=== PATIENT | male | born 1985 | race Caucasian/White ===

== ENCOUNTER 2019-09-03 03:37 | Emergency (ER) | payer SELFPAY ==
[~2019-09-03] VITALS: Ht 180.3 cm; Wt 91.9 kg
[2019-09-03 03:40] VITALS: BP 143/98
--- NOTE | 2019-09-03 03:42 | PHYS DOC ---
Past History Past Medical History: Other Smoking: Cigarettes Alcohol Use: Occasionally Drug Use: Amphetamine, Heroin Adult General Chief Complaint Chief Complaint: " .. I was moving a couch.. and I think I got a spider bite....:'" [facility] HPI Patient is a 34 year old MALE who presents with above hx and complaints cellulitis and spider bite to Rt side of neck. Pt. has a 1 cm abscess and surround cellulitis of 6 x 4 cm or erythema. Center area appears to be an injection site. Confronted pt. about drug use. Admitted he injected the site with Heroin.. approximately 10 days ago and area became infected. Patient admits to approximately $50 a day heroin use. Patient has use meth occasionally and does drink occasionally. Patient states his HIV 6 months ago was negative. No other history immunosuppression. Patient has findings of other old injection sites on his arms. No history of prior MRSA. No recent travel. No specific ill contacts. Patient thinks last tetanus was approximately 7 years ago. Review of Systems Review of Systems Constitutional: Denies fever or chills [] Eyes: Denies change in visual acuity, redness, or eye pain [] HENT: Denies nasal congestion or sore throat [] Respiratory: Denies cough or shortness of breath [] Cardiovascular: No additional information not addressed in HPI [] GI: Denies abdominal pain, nausea, vomiting, bloody stools or diarrhea [] : Denies dysuria or hematuria [] Musculoskeletal: Denies back pain or joint pain [] Integument: Complaints of cellulitis and spider bite Neurologic: Denies headache, focal weakness or sensory changes [] Endocrine: Denies polyuria or polydipsia [] All other systems were reviewed and found to be within normal limits, except as documented in this note. Family History Family History Noncontributory Current Medications Current Medications See nursing for home meds Allergies Allergies No known drug allergies Physical Exam Physical Exam Constitutional: Mild distress, non-toxic appearance. [] HENT: Normocephalic, atraumatic, bilateral external ears normal, oropharynx moist, no oral exudates, nose normal. [] Eyes: PERRLA, EOMI, conjunctiva normal, no discharge. [] Neck: Normal range of motion, right sided neck tenderness, cellulitis and abscess, supple, no stridor. [] No adenopathy Cardiovascular:Heart rate regular rhythm, no murmur [] Lungs & Thorax: Bilateral breath sounds equal apex with scattered wheezes auscultation [] Abdomen: Bowel sounds normal, soft, no tenderness, no masses, no pulsatile masses. [] Skin: Warm, dry, no erythema, no rash. Old injection sites on arms Back: No tenderness, no CVA tenderness. [] Extremities: No tenderness, no cyanosis, no clubbing, ROM intact, no edema. [] Neurologic: Alert and oriented X 3, normal motor function, normal sensory function, no focal deficits noted. [] Psychologic: Affect anxious, judgement normal, mood normal. [] EKG EKG [] Radiology/Procedures Radiology/Procedures [] Course & Med Decision Making Course & Med Decision Making Pertinent Labs and Imaging studies reviewed. (See chart for details) Procedure note- clean area of abscess with Betadine. Inserted 18-gauge needle in center of abscess aspirated approximately 1 mL of mucopurulent hemorrhagic pus. Sent for culture and sensitivity. Patient use warm salt or Epsom salts water compresses 4 times a day. After compresses massage area Polysporin. Patient take Bactrim DS twice a day. Patient follow-up primary care. Encouraged patient to get in a drug rehabilitation program. Patient must follow-up pending cultures. []Impression: 1. IV heroin user 2. Cellulitis and abscess right side of neck Dragon Disclaimer Dragon Disclaimer This electronic medical record was generated, in whole or in part, using a voice recognition dictation system. Departure Departure: Disposition: 01 HOME/RESIDENCE PRIOR TO ADM Condition: STABLE Referrals: PCP,NO (PCP) Scripts Sulfamethoxazole/Trimethoprim (BACTRIM DS TABLET) 1 Each Tablet 1 TAB PO BID for cellulitis for 10 Days, #20 TAB 0 Refills Prov: RAMONA RYAN MD 09/03/19 Rohith Disclaimer This chart was dictated in whole or in part using Voice Recognition software in a busy, high-work load, and often noisy Emergency Department environment. It may contain unintended and wholly unrecognized errors or omissions. RAMONA RYAN MD Sep 03, 2019 03:42
[2019-09-03] MEDS ORDERED: SULF1TAB24 PO (04:00)
[2019-09-03] MEDS ORDERED: cefTRIAXone SODIUM 1 GM VIAL ONE (04:03)
[2019-09-03] MEDS ORDERED: cefTRIAXone IM 1 GM VIAL IM ONE (04:30)
[2019-09-03] MEDS ORDERED: SMZ/TMP 800/160MG TABLET. PO ONE (04:30)
[2019-09-03] MEDS ORDERED: DIPHTH,PERTUSS(ACELL),TET TOX 0.5 ML DISP.SYRIN. VAX IM ONE (04:30)
== END 2019-09-03 04:30 | disposition home or self-care (01) ==
LOC: ER 03:37
DX: L03.221 Cellulitis of neck (principal); L02.11 Cutaneous abscess of neck; F11.20 Opioid dependence, uncomplicated; F15.10 Other stimulant abuse, uncomplicated; F17.210 Nicotine dependence, cigarettes, uncomplicated
CPT/HCPCS: 10160; 87070; 87186; 90471; 90715; 96372; 99284; J0696